=== PATIENT | male | born 1945 | race Caucasian/White ===

== ENCOUNTER 2022-09-20 10:29 | Inpatient (IN) | payer MEDICARE, SELFPAY ==
[2022-09-20] VITALS (24 sets, daily range): BP systolic 104–155; BP diastolic 68–90; PULSE 67–87; RESP 14–18; TEMP 35.8–36.6; O2SAT 92–98; BMI 40.2; BMI 34.0
[2022-09-20 10:43] LABS: Glucometer 89 mg/dL (74-106)
--- NOTE | 2022-09-20 10:49 | ECG_ITS ---
[facility] Test Date: 2022-09-20 Pat Name: CLARE VELÁSQUEZ Department: Room: - Gender: Male Manager Portable: : 1945 Requested By: [id number] Order Number: [id number] Reading MD: YOHAN CANALES Measurements Intervals [place] Rate: 69 P: -[id number] DE: -[id number] QRS: 48 QRSD: 92 T: 258 QT: 422 QTc: 441 Interpretive Statements [address]/T wave changes, can't exclude inferolateral ischemia 9150 abnormal ECG No previous ECG available for comparison Electronically Signed On 09-21-2022 9:51:35 EDT by YOHAN CANALES
--- NOTE | 2022-09-20 10:50 | CT_ITS ---
The [address] [address] Patient Name: CLARE VELÁSQUEZ MRN: [id number] date: 1945 Sex: M Assigned Patient Location: ED.MAIN Current Patient Location: ED.MAIN Accession/Order Number: [id number] Exam Date: 09/20/2022 11:05 Report Date: 09/20/2022 11:33 At the request of: ALLISON AYALA Procedure: CT stroke head/brain wo con XR chest 1V, CT stroke head/brain wo con, 09/20/2022 11:05 AM EDT INDICATION: CHANGE IN MENTAL STATUS COMPARISON: No prior CT scan of the head or radiograph of the chest available for comparison at the time of this dictation. TECHNIQUE: Axial CT images of the brain from skull base to vertex, including portions of the face and sinuses, were obtained without contrast. Multiplanar reformatted images were generated and reviewed as needed. FINDINGS: No intracranial mass, hydrocephalus, midline shift or acute hemorrhage. No extra-axial collection. Periventricular and deep white matter microvascular ischemic change. Carrasco-white matter differentiation is preserved. The paranasal sinuses and mastoid air cells are clear. Orbits are within normal limits. No acute skull fracture. CT/CT stroke head/brain wo con IMPRESSION: No acute intracranial abnormality. AP portable upright CHEST: Cardiomediastinal silhouette within normal limits. Portacatheter over the right chest wall with tip in the SVC. No lobar consolidation. Groundglass opacity at the lung base bilaterally. No lobar consolidation. No acute fracture or dislocation. IMPRESSION: Groundglass opacity within the lower lobes bilaterally. Differential considerations include mild pulmonary edema, hypoventilatory change. Electronically authenticated by: MARLEN QUIROGA Date: 09/20/2022 11:33
--- NOTE | 2022-09-20 10:55 | ED_ITS ---
HPI - General Adult General Chief complaint: Altered Mental Status Stated complaint: altered mental status Time Seen by Provider: 09/20/22 10:55 Mode of arrival: ambulance History of Present Illness HPI narrative: Patient is a 76-year-old male who is presenting to the Emergency Room today with chief complaint Confusion, weakness, and increasing pain. Patient was sitting in a chair last evening, patient was at home with his . Patient is wheelchair- bound, he uses a walker for limited transfers. Patient was sitting in his chair, patient's told him to move back into the chair and he moved forward. Another episode of confusion was patient's thinks that the patient called her Darl which is a brother. However, patient calls her darling often, and she is not certain if he meant to say darling and said Darl instead. Patient has a history of pancreatic cancer with bone metastases to multiple places including lower spine, pelvis. Patient was just diagnosed recently. Pt PCP is Dr Neri. PT lives in [facility]. Patient has no physicians at [facility]. Patient is currently in [facility] hospice care. Patient was diagnosed on August 09 with pancreatic cancer. Hospice was seen patient once a week, now they're seeing him twice a week. Patient has no headache. No chest pain or shortness of breath. Patient has chronic midepigastric pain and abdominal pain. No nausea or vomiting. No other acute complaints. Patient's and daughter are at bedside initially. Patient is currently a full code in hospice care [facility]. . All systems are negative except as noted/marked. All systems reviewed and otherwise negative. . Nurses note and vital signs reviewed and patient is not hypoxic. General: The patient appears well and in Mild distress secondary to pain. Patient is more somnolent, not lethargic. Patient is resting comfortably on cart. Patient is not toxic, lethargic, or listless. Skin: Warm, dry, no pallor noted. There is no rash noted. No petechiae, purpura. Head: Normocephalic, atraumatic Eye: Normal conjunctiva, no drainage, EOMI. PERRL Ears, Nose, Mouth, and Throat: oral mucosa is moist. Nares patent. Mouth without vesicles. Cardiovascular: Regular Rate and Rhythm, no murmur, gallop, rub Respiratory: Patient is in no distress, no accessory muscle use, lungs are clear to auscultation, no wheezing, rales or rhonchi Back: non-tender, no CVA tenderness bilaterally to percussion. No CT LS midline pain GI: soft, Moderate midepigastric tenderness to palpation. Diffuse mild tenderness to palpation, no masses appreciated. No rebound, mild guarding, or rigidity noted. No flank pain bilateral, No distention Musculoskeletal: Patient has full range of motion of all of the extremities, no motor, sensory, or focal neurological deficits Neurological: A&O x3, normal speech Psychiatric: Cooperative Related Data Home Medications Medication Instructions Recorded Confirmed acetaminophen 650 mg rectal 650 mg AL Q6H PRN fever or pain 09/20/22 09/20/22 suppository allopurinol 300 mg tablet 150 mg PO QDAY 09/20/22 09/20/22 alprazolam 0.5 mg tablet 0.5 mg PO Q4H PRN anxiety 09/20/22 09/20/22 amiodarone 200 mg tablet 200 mg PO Q12H 09/20/22 09/20/22 bisacodyl 10 mg rectal suppository 10 mg AL QDAY PRN constipation 09/20/22 09/20/22 bupropion HCl 150 mg 24 hr tablet, 150 mg PO QDAY 09/20/22 09/20/22 extended release dexamethasone 2 mg tablet 4 mg PO Q24H 09/20/22 09/20/22 furosemide 40 mg tablet 40 mg PO QDAY 09/20/22 09/20/22 hydromorphone 2 mg tablet 2 mg PO Q2H PRN pain 09/20/22 09/20/22 hyoscyamine sulfate 0.125 mg 0.125 mg PO Q4H PRN dyspepsia 09/20/22 09/20/22 tablet (Levsin) ivermectin 3 mg tablet 3 mg PO QDAY 09/20/22 09/20/22 latanoprost 0.005 % eye drops 1 drp ophthalmic (eye) QPM 09/20/22 09/20/22 loperamide 2 mg tablet (Diamode) 2 mg PO Q6H PRN loose stool 09/20/22 09/20/22 omeprazole 20 mg capsule,delayed 20 mg PO DAILY 09/20/22 09/20/22 release oxycodone-acetaminophen 5 mg-325 1 tab PO Q8H PRN pain 09/20/22 09/20/22 mg tablet (Endocet) oxygen-air delivery systems 09/20/22 09/20/22 promethazine 25 mg tablet 25 mg PO Q6H PRN nausea and 09/20/22 09/20/22 vomiting sennosides 8.6 mg-docusate sodium 2 tab-cap PO BID 09/20/22 09/20/22 50 mg tablet (Senna Plus) spironolactone 25 mg tablet 25 mg PO Q12H 09/20/22 09/20/22 tamsulosin 0.4 mg capsule 0.4 mg PO Q24H 09/20/22 09/20/22 timolol maleate 0.5 % eye drops 1 drp ophthalmic (eye) Q12H 09/20/22 09/20/22 Allergies Allergy/AdvReac Type Severity Reaction Status Date / Time No Known Drug Allergies Allergy Verified 09/20/22 10:30 Exam Constitutional Vital Signs, click to edit/add: Last Vital Signs Temp 96.4 F L 09/20/22 10:31 Pulse 67 09/20/22 10:31 Resp 14 09/20/22 10:31 BP 134/75 H 09/20/22 14:45 Pulse Ox 98 09/20/22 10:31 O2 Del Method Room Air 09/20/22 10:37 Course Vital Signs Vital signs: Vital Signs Temperature 96.4 F L 09/20/22 10:31 Pulse Rate 67 09/20/22 10:31 Respiratory Rate 14 09/20/22 10:31 Blood Pressure 155/84 H 09/20/22 10:31 Pulse Oximetry 98 09/20/22 10:31 Oxygen Delivery Method Room Air 09/20/22 10:31 Temperature 96.4 F L 09/20/22 10:31 Pulse Rate 67 09/20/22 10:31 Respiratory Rate 14 09/20/22 10:31 Blood Pressure 134/75 H 09/20/22 14:45 Pulse Oximetry 98 09/20/22 10:31 Oxygen Delivery Method Room Air 09/20/22 10:37 Medical Decision Making MDM Narrative Medical decision making narrative: I spent greater than 45 minutes at bedside with family with multiple conversations. Initial conversations speaking and patient's medical history, hospice care, full code status. Performing history and physical. Performing reevaluation. Performing 20 minute conversation of DNR ankle is status with DNR CCA, DNR CC, and DO NOT INTUBATE education. Education was done on hospice. Edwina for social worker clinical was very nicely come down and speak to the family as well on behalf of social worker clinical and hospice questions that they family had. Patient was given 2 L of IV fluid, several doses of Dilaudid. Patient is not moving much,Is still weak, having pain, and not functioning like he has in the past. Patient's lab last tests were back in August 2020, patient had normal LFTs at that time. Patient's LFTs are slightly elevated today compared to one year ago; however pancratic cancer was not diagnosed last year however. Patient's sodium levels with 25. Patient given 2 L of IV fluid. After greater than 30 minutes of end-of-life care discussions, patient agrees to and his BRUCE signed a form on behalf of patient that he is a DNR CCA, DO NOT INTUBATE, yes BiPAP or CPAP. Dr Wong Saw and evaluated the patient in the Emergency Room. No other recommendations at this time. Critical care time 35 minutes exclusive from separate billable procedures that were performed. The following was considered in the determination of critical care but not limited to the level of medical decision making, intensive cardiac and/or respiratory monitoring, frequent vital sign monitoring, evaluation of laboratory studies, evaluation of radiographic studies, oxygen monitoring, and constant monitoring and speaking to family at bedside Lab Data Lab results reviewed: Yes I reviewed the patient's lab results Labs: Lab Results 09/20/22 09/20/22 09/20/22 Range/Units 10:41 10:45 12:00 WBC 7.7 (4.0-11.0) 10^3/uL RBC 4.85 (4.70-6.10) 10^6/uL Hgb 15.5 (14.0-18.0) g/dL Hct 43.5 (42.0-54.0) % MCV 89.7 (80.0-94.0) fL MCH 32.0 (25.9-34.0) pg MCHC 35.6 H (29.9-35.2) g/dL RDW 15.7 H (11.0-15.0) % Plt Count 49 L (150-450) 10^3/uL MPV 10.6 (9.5-13.5) fL Seg Neuts % (Manual) 88.0 Lymphocytes % (Manual) 5.0 L (20.5-60.0) % Monocytes % (Manual) 6.0 (1.7-12.0) % Eosinophils % (Manual) 1.0 (0.9-7.0) % Neutrophils # (Manual) 6.77 H (1.4-6.5) 10^3/uL Lymphocytes # (Manual) 0.38 L (1.20-3.80) 10^3/uL Monocytes # (Manual) 0.46 (0.30-0.80) 10^3/uL Eosinophils # (Manual) 0.07 (0.00-0.70) 10^3/uL Basophils # (Manual) Not Reportable Sodium 125 L (136-145) mmol/L Potassium 4.1 (3.5-5.1) mmol/L Chloride 93 L (98-107) mmol/L Carbon Dioxide 23.8 (21.0-32.0) mmol/L Anion Gap 12.3 BUN 21.0 H (7.0-18.0) mg/dL Creatinine 0.78 (0.70-1.30) mg/dL Est GFR ( Amer) >60 (>=60) Est GFR (Non-Af Amer) >60 (>=60) BUN/Creatinine Ratio 26.9 Glucose 98 (74-106) mg/dL Lactate 1.4 (0.4-2.0) mmol/L Calcium 8.3 L (8.5-10.1) mg/dL Total Bilirubin 1.2 H (0.2-1.0) mg/dL AST 39 H (15-37) U/L ALT 76 H (16-63) U/L Alkaline Phosphatase 211 H (46-116) U/L C-Reactive Protein 4.3 H (<=1.0) mg/dL Total Protein 5.1 L (6.4-8.2) g/dL Albumin 2.4 L (3.4-5.0) g/dL Globulin 2.7 g/dL Albumin/Globulin Ratio 0.9 Urine Color Yellow (YELLOW) Urine Clarity Clear (CLEAR) Urine pH 8.0 (5.0-9.0) Ur Specific [place] 1.010 (1.005-1.025) Urine Protein Negative (NEG/TRACE) mg/dL Urine Glucose (UA) Negative (NEGATIVE) mg/dL Urine Ketones Negative (NEGATIVE) mg/dL Urine Occult Blood Moderate A (NEGATIVE) Urine Nitrite Negative (NEGATIVE) Urine Bilirubin Negative (NEGATIVE) Urine Urobilinogen 4.0 A (0.2-1.0) EU/dL Ur Leukocyte Esterase Negative (NEGATIVE) POC Glucose 89 (74-106) mg/dL ECG Data Attestation: I personally reviewed and interpreted this ECG as follows: Interpretation: EKG interpretation. Normal sinus rhythm at 69 beats a minute. Normal axis deviation. Artifact noted. QTC of 441. No acute ST elevation, no acute ectopy. Discharge Plan Discharge Chief Complaint: Altered Mental Status Clinical Impression: Pancreatic cancer, Chronic pain, Hyponatremia Patient Disposition: Admitted As Inpatient Condition: Fair
[2022-09-20 11:03] LABS: Hematocrit 43.5 % (42.0-54.0); Hemoglobin 15.5 g/dL (14.0-18.0); Mean Corpuscular HGB Conc 35.6 g/dL (29.9-35.2); Mean Corpuscular Volume 89.7 fL (80.0-94.0); Mean Platelet Volume 10.6 fL (9.5-13.5); Platelet Count 49 10^3/uL (150-450); Red Blood Count 4.85 10^6/uL (4.70-6.10); Red Cell Distribution Width 15.7 % (11.0-15.0); White Blood Count 7.7 10^3/uL (4.0-11.0)
[2022-09-20 11:14] LABS: Alanine Aminotransferase 76 U/L (16-63); Albumin Globulin Ratio 0.9; Albumin Level 2.4 g/dL (3.4-5.0); Alkaline Phosphatase 211 U/L (46-116); Anion Gap 12.3; Aspartate Amino Transferase 39 U/L (15-37); BUN Creatinine Ratio 26.9; Bilirubin Total 1.2 mg/dL (0.2-1.0); C Reactive Protein 4.3 mg/dL (<=1.0); Calcium 8.3 mg/dL (8.5-10.1); Carbon Dioxide 23.8 mmol/L (21.0-32.0); Chloride 93 mmol/L (98-107); Estimated GFR (African America >60 (>=60); Estimated GFR (Non-African Ame >60 (>=60); Globulin 2.7 g/dL; Glucose 98 mg/dL (74-106); Potassium 4.1 mmol/L (3.5-5.1); Sodium 125 mmol/L (136-145); Total Protein 5.1 g/dL (6.4-8.2)
[2022-09-20 11:17] LABS: Eosinophils Absolute Manual 0.07 10^3/uL (0.00-0.70); Lymphocytes Absolute Manual 0.38 10^3/uL (1.20-3.80); Monocytes Absolute Manual 0.46 10^3/uL (0.30-0.80); Segmented Neut Absolute Manual 6.77 10^3/uL (1.4-6.5)
[2022-09-20 11:27] LABS: Lactate/Lactic Acid 1.4 mmol/L (0.4-2.0)
[2022-09-20] MEDS: 0.9 % SODIUM CHLORIDE 1,000 ML 1000 ML IV ×2 (11:46→13:49)
[2022-09-20 12:21] LABS: Bilirubin Urine NEGATIVE (NEGATIVE); Blood Urine MODERATE (NEGATIVE); Clarity Urine CLEAR (CLEAR); Color Urine YELLOW (YELLOW); Glucose Urine UA NEGATIVE (NEGATIVE); Ketones Urine NEGATIVE (NEGATIVE); Leukocyte Esterase Urine NEGATIVE (NEGATIVE); Nitrite Urine NEGATIVE (NEGATIVE); Protein Urine NEGATIVE (NEG/TRACE)
[2022-09-20] MEDS: HYDROMORPHONE HCL 1 MG/ML CARTRIDGE IVP (13:49)
--- NOTE | 2022-09-20 14:08 | SWNOTE1 ---
GHADA received a call from nursing x2 and then spoke with doctor. Pt is at home with [facility] and family had questions/concerns. GHADA spoke with pt's , daughter, and son in room. Pt has [facility] at home and has had them since beginning of August. Pt's family inquired about inpt facility for pt to go to. GHADA let them know [facility] does not have one around here. GHADA explained that [facility] does, but a patient has to qualify to be admitted to the inpt unit. SW asked if they were not happy with the care [facility] was giving, they did not express unhappiness with the care. Family spoke with Carmina from [facility] this morning and they told her in order for family to get a hospital bed in the home, pt will have to sign DNR paperwork, pt is currently a full code. SW let family know SW is not sure on this guideline. Family also asked about if pt was admitted to hospital what that would entail. GHADA let them know if pt was admitted, hospice would be revoked and once he is ready for discharge, hospice would have to come back in and evaluate and sign back on. At this time no further questions. GHADA did give family resources on [facility] and [facility]. GHADA updated doctor. Family going to speak with doctor about code status.
[2022-09-20] MEDS: HYDROMORPHONE HCL 2 MG/ML VIAL 1 MG IV (15:05)
--- NOTE | 2022-09-20 16:47 | PM.HP ---
H&P: HPI History of Present Illness Chief complaint: altered mental status Narrative: patient is a 76-year-old male with past medical history of end-stage pancreatic cancer who underwent a Whipple procedure approximately one year ago. Since that time he has tried and failed chemotherapy and radiation. Approximately one month ago patient joined [facility] palliative care services.since yesterday has noticed some increased confusion, and some increased weakness. He has had less intake and just does not have an appetite. Also reports some abdominal pain, no fevers chills no nausea vomiting or diarrhea. He does admit to some constipation. is at bedside along with sign and brother. Patient signed a DNR CCA, and would like to get a [facility] hospice consult for possible inpatient. They do wish to do everything to make his symptoms improved or tolerable. They note he has been getting Lasix for some lower extremity swelling. They deny any history of heart failure. He also has not had a bowel movement in a few days, she denies any history of taking lactulose. Patient will be admitted to [facility] for further evaluation. Review of Systems ROS Narrative ROS: a complete review of systems were reviewed with patient and are positive as below or listed in History of Chief Complaint. General: no fever, chills, night sweats Head: no headache, trauma, visual changes, nausea or vomiting Skin: no reported rashes, itching or sores Eyes: no blurriness of vision Ears: no reported hearing loss, vertigo, earache, or tinnitus Throat: no sore throat, hoarseness, swelling of neck, or tongue pain Heart: no chest pain Lungs: no shortness of breath or cough GI: no diarrhea or vomiting/nausea, bloating Urinary: no urinary urgency, frequency or pain Neuro: no numbness or tingling HEM: no bleeding issues or bruising ENDO: no thyroid problems Psych: no anxiety or depression Meds Home Medications and Allergies Home Medications Medication Instructions Recorded Confirmed Type acetaminophen 650 mg rectal 650 mg WV Q6H PRN fever or pain 09/20/22 09/20/22 History suppository allopurinol 300 mg tablet 150 mg PO QDAY 09/20/22 09/20/22 History alprazolam 0.5 mg tablet 0.5 mg PO Q4H PRN anxiety 09/20/22 09/20/22 History amiodarone 200 mg tablet 200 mg PO Q12H 09/20/22 09/20/22 History bisacodyl 10 mg rectal suppository mg W[place] QDAY PRN constipation 09/20/22 History bupropion HCl 150 mg 24 hr tablet, 150 mg PO QDAY 09/20/22 09/20/22 History extended release dexamethasone 2 mg tablet 4 mg PO Q24H 09/20/22 09/20/22 History furosemide 40 mg tablet 40 mg PO QDAY 09/20/22 09/20/22 History hydromorphone 2 mg tablet 2 mg PO Q2H PRN pain 09/20/22 09/20/22 History hyoscyamine sulfate 0.125 mg 0.125 mg PO Q4H PRN dyspepsia 09/20/22 09/20/22 History tablet (Levsin) ivermectin 3 mg tablet 3 mg PO QDAY 09/20/22 09/20/22 History latanoprost 0.005 % eye drops 1 drp ophthalmic (eye) QPM 09/20/22 09/20/22 History loperamide 2 mg tablet (Diamode) 2 mg PO Q6H PRN loose stool 09/20/22 09/20/22 History omeprazole 20 mg capsule,delayed 20 mg PO DAILY 09/20/22 09/20/22 History release oxycodone-acetaminophen 5 mg-325 1 tab PO Q8H PRN pain 09/20/22 09/20/22 History mg tablet (Endocet) oxygen-air delivery systems 09/20/22 09/20/22 History promethazine 25 mg tablet 25 mg PO Q6H PRN nausea and 09/20/22 09/20/22 History vomiting sennosides 8.6 mg-docusate sodium 2 tab-cap PO BID 09/20/22 09/20/22 History 50 mg tablet (Senna Plus) spironolactone 25 mg tablet 25 mg PO Q12H 09/20/22 09/20/22 History tamsulosin 0.4 mg capsule 0.4 mg PO Q24H 09/20/22 09/20/22 History timolol maleate 0.5 % eye drops 1 drp ophthalmic (eye) Q12H 09/20/22 09/20/22 History Allergies Allergy/AdvReac Type Severity Reaction Status Date / Time No Known Drug Allergies Allergy Verified 09/20/22 10:30 Exam Narrative Exam Narrative: General: Patient is alert, and oriented to person, place and time with normal affect, proper hygiene Skin: no visible rashes, or ulcers Head: atraumatic, acephalic Eyes: PERRLA, no nystagmus present, conjunctiva clear, no scleral icterus Ears: normal Tympanic Membrane, normal gross auditory acuity Nose: symmetric, no discharge, no maxillary or frontal sinus tenderness Mouth/Throat: no erythema, exudate, or tonsillar enlargement, normal dentition Neck: no masses palpated, normal thyroid, no JVD or audible carotid bruits Heart: Normal rate and rhythm, no murmurs/rubs/gallops Lungs: no audible wheezes, crackles and normal breath sounds all lung casanova Abdomen: Normal audible bowel sounds, no distension, No palpable masses, no organomegaly, no rebound/guarding/ or rigidity Musculoskeletal: muscle atrophy noted, ROM is limited due to being in hospital bed, +1 swelling bilateral lower extremities Vascular: Normal carotid, radial, femoral, posterior tibial, and dorsalis pedis pulses Lymph: no supraclavicular, axillary, or anterior/posterior cervical adenopathy Neuro: CN II-X grossly intact, normal sensation upper and lower extremities Constitutional Vital Signs, click to edit/add: Last Vital Signs Temp 96.4 F L 09/20/22 10:31 Pulse 67 09/20/22 10:31 Resp 14 09/20/22 10:31 BP 134/75 H 09/20/22 14:45 Pulse Ox 98 09/20/22 10:31 O2 Del Method Room Air 09/20/22 10:37 Results Labs Labs: Short CBC 09/20/22 Range/Units 10:45 WBC 7.7 (4.0-11.0) 10^3/uL Hgb 15.5 (14.0-18.0) g/dL Hct 43.5 (42.0-54.0) % Plt Count 49 L (150-450) 10^3/uL BMP 09/20/22 10:45 Sodium 125 L Potassium 4.1 Chloride 93 L Carbon Dioxide 23.8 BUN 21.0 H Creatinine 0.78 Glucose 98 Calcium 8.3 L Liver Function 09/20/22 Range/Units 10:45 Total Bilirubin 1.2 H (0.2-1.0) mg/dL AST 39 H (15-37) U/L ALT 76 H (16-63) U/L Alkaline Phosphatase 211 H (46-116) U/L Albumin 2.4 L (3.4-5.0) g/dL Urine 09/20/22 Range/Units 12:00 Urine Color Yellow (YELLOW) Urine Clarity Clear (CLEAR) Urine pH 8.0 (5.0-9.0) Ur Specific [place] 1.010 (1.005-1.025) Urine Protein Negative (NEG/TRACE) mg/dL Urine Glucose (UA) Negative (NEGATIVE) mg/dL Assessment and Plan Assessment and Plan (1) Hyponatremia: Assessment and Plan: replace by providing low rate Normal saline, recheck sodium (2) Chronic pain: Assessment and Plan: continue IV as needed morphine, continue home medications (3) Pancreatic cancer: Assessment and Plan: end stage, palliative and hospice consult for possible inpatient admission? (4) Elevated LFTs: Assessment and Plan: check ammonia level, lactulose for constipation symptoms. recheck in the morning, consider CT of the abd/pelvis Plan lovenox to DVT prophylaxis DNRCCA patient is under observation status and is not expected to stay more than 2 midnights.
[2022-09-20 17:37] LABS: Ammonia 71 umol/L (11-32)
[2022-09-20] MEDS: ALPRAZOLAM 0.5 MG TABLET PO (18:39)
[2022-09-20] MEDS: MORPHINE SULFATE 2 MG/ML SYRINGE IV (18:39)
[2022-09-20] MEDS: 0.9 % SODIUM CHLORIDE 1,000 ML 100 ML IV (18:40)
[2022-09-20] MEDS: DEXAMETHASONE 4 MG TABLET PO (21:24)
[2022-09-20] MEDS: TAMSULOSIN HCL 0.4 MG CAPSULE PO (21:24)
[2022-09-20] MEDS: ENOXAPARIN SODIUM 40 MG/0.4 ML SYRINGE SUBQ (21:24)
[2022-09-20] MEDS: TIMOLOL MALEATE 0.5% OP SOL 100 DROPS/5 ML BOTTLE 1 DROP OP (21:24)
[2022-09-20] MEDS: FUROSEMIDE 40 MG/4 ML VIAL IVP (22:55)
[2022-09-21 04:28] VITALS: BP 108/65; PULSE 76; RESP 20; TEMP 36.4; O2SAT 90
[2022-09-21] MEDS: 0.9 % SODIUM CHLORIDE 1,000 ML 100 ML IV (04:52)
[2022-09-21 05:11] LABS: Basophils Percent Auto 0.3 % (0.2-2.0); Eosinophils Percent Auto 0.1 % (0.9-7.0); Immature Granulocytes Abs Auto 0.09 10^3/uL (0.00-0.03); Immature Granulocytes Pct Auto 1.1 % (0.0-0.5); Lymphocytes Absolute Auto 0.2 10^3/uL (1.2-3.8); Lymphocytes Percent Auto 2.3 % (20.5-60.0); Mean Corpuscular HGB Conc 35.9 g/dL (29.9-35.2); Mean Corpuscular Hemoglobin 32.6 pg (25.9-34.0); Mean Corpuscular Volume 90.9 fL (80.0-94.0); Mean Platelet Volume 11.7 fL (9.5-13.5); Monocytes Absolute Auto 0.3 10^3/uL (0.3-0.8); Monocytes Percent Auto 3.2 % (1.7-12.0); Neutrophils Absolute Auto 7.4 10^3/uL (1.4-6.5); Red Blood Count 4.29 10^6/uL (4.70-6.10); Red Cell Distribution Width 15.9 % (11.0-15.0); White Blood Count 7.9 10^3/uL (4.0-11.0)
[2022-09-21 05:27] LABS: Alanine Aminotransferase 66 U/L (16-63); Albumin Globulin Ratio 0.7; Albumin Level 1.8 g/dL (3.4-5.0); Alkaline Phosphatase 201 U/L (46-116); Anion Gap 9.7; Aspartate Amino Transferase 42 U/L (15-37); BUN Creatinine Ratio 26.3; Calcium 7.2 mg/dL (8.5-10.1); Carbon Dioxide 25.3 mmol/L (21.0-32.0); Chloride 96 mmol/L (98-107); Estimated GFR (African America >60 (>=60); Estimated GFR (Non-African Ame >60 (>=60); Globulin 2.6 g/dL; Glucose 76 mg/dL (74-106); Magnesium 1.8 mg/dL (1.8-2.4); Sodium 127 mmol/L (136-145); Total Protein 4.4 g/dL (6.4-8.2)
[2022-09-21 05:31] LABS: Platelet Count 31 10^3/uL (150-450)
[2022-09-21] MEDS: BUPROPION HCL 150 MG XL TABLET 24H PO (08:16)
[2022-09-21] MEDS: PANTOPRAZOLE SODIUM 40 MG VIAL IV (08:16)
[2022-09-21] MEDS: ALLOPURINOL 300 MG TABLET 150 MG PO (08:16)
[2022-09-21] MEDS: AMIODARONE HCL 200 MG TABLET PO (08:17)
[2022-09-21] MEDS: TIMOLOL MALEATE 0.5% OP SOL 100 DROPS/5 ML BOTTLE 1 DROP OP ×2 (08:17→22:48)
[2022-09-21] MEDS: SPIRONOLACTONE 25 MG TABLET PO ×2 (08:17→14:01)
[2022-09-21] MEDS: FUROSEMIDE 40 MG/4 ML VIAL IVP ×2 (09:39→14:01)
[2022-09-21 10:51] LABS: Anion Gap 13.2; BUN Creatinine Ratio 22.4; Calcium 7.3 mg/dL (8.5-10.1); Carbon Dioxide 22.9 mmol/L (21.0-32.0); Chloride 96 mmol/L (98-107); Estimated GFR (African America >60 (>=60); Estimated GFR (Non-African Ame >60 (>=60); Glucose 140 mg/dL (74-106); Potassium 4.1 mmol/L (3.5-5.1); Sodium 128 mmol/L (136-145)
[2022-09-21 14:04] VITALS: BP 100/61; PULSE 72; RESP 18; TEMP 36.4; O2SAT 93
--- NOTE | 2022-09-21 15:02 | P.IMPN_ITS ---
Progress Note: A&P Assessment and Plan (1) Metabolic encephalopathy: Assessment and Plan: Sec to hyponatremia and hyperammonemia. Improved. Still lethargic. Refusing lactulose. Reiterated that he needs to use it to feel better. (2) Hyponatremia: Assessment and Plan: Likely hypervolemic hyponatremia. Started on IV Lasix 40 q12. Stop IVF. Monitor closely Urine sodium/Cr ordered (3) Hyperammonemia: Assessment and Plan: From pancreatic cancer, constipation. Lactulose ordered to help with BM and hyperammonemia (4) Acute heart failure with preserved ejection fraction: Assessment and Plan: Volume overload on exam. Suspect HFpEF. no old ECHO in hospital records. Lasix 40 q12. Holding off on ECHO for now. monitor I/Os, daily weights. (5) Pancreatic cancer: Assessment and Plan: Metastatic pancreatic cancer. s/p Whipple 01/22 and had chemo prior to that. Pt has abdominal metastasis resulting in poorly controlled abd pain and was enrolled in hospice for pain control. Qualifiers: Pancreatic malignancy location: unspecified Qualified Code(s): C25.9 - Malignant neoplasm of pancreas, unspecified (6) Elevated LFTs: Assessment and Plan: Likely due to Pancreatic cancer. Monitor. (7) Chronic pain: Assessment and Plan: Due to metastatic Pancreatic cancer. Controlled on current regimen now and appears comfortable (8) History of atrial fibrillation: Assessment and Plan: In NSR. On amiodarone. C/w it as per family's request. (9) Hospice care: Assessment and Plan: Currently enrolled in hospice and was sent to ED for change in mental status. Patient was a full code prior to ED visit and was made DNR CCA by ED provider. D/w and daughter and explained to them in detail about hospcie, palliative care. [facility] has a phone meeting with family tomorrow. Family reluctant to withhold treatment/labs/diagnostic w/u and would like for us to c/w same for now. Internal Medicine - PN: Subj Subjective Interval history: Seen and examined. No overnight events. Mental status is improved from yesterday. Abd pain is well controlled too. Exam Constitutional Vital Signs, click to edit/add: Last Vital Signs Temp 97.5 F L 09/21/22 14:04 Pulse 72 09/21/22 14:04 Resp 18 09/21/22 14:04 BP 100/61 09/21/22 14:04 Pulse Ox 93 L 09/21/22 14:04 O2 Del Method Room Air 09/21/22 14:04 Documenting provider has reviewed patient's vital signs: yes General appearance: cooperative, comfortable and lethargic Nutritional appearance: obese HENMT Common normals: normocephalic and head/scalp atraumatic Respiratory Common normals: normal respiratory effort, no use of accessory muscles and clear to auscultation bilaterally Cardio Common normals: no JVD, regular rate, regular rhythm, S1 normal heart sound, S2 normal heart sound and no murmurs GI Common normals: Normal to inspection, nondistended, normoactive bowel sounds present, non-tender and no hepatosplenomegaly Extremity General: edema (+2 LE ) Neuro Common normals: oriented x3, moves all extremities, no focal motor deficits and no sensory deficits noted Sensorium/orientation: lethargic Psych Common normals: cooperative, denies hallucinations, denies homicidal ideation and denies suicidal ideation Internal Medicine - PN: Obj Da Labs Labs: Laboratory Results - last 24 hr 09/20/22 09/21/22 09/21/22 17:12 04:30 10:28 WBC 7.9 RBC 4.29 L Hgb 14.0 Hct 39.0 L MCV 90.9 MCH 32.6 MCHC 35.9 H RDW 15.9 H Plt Count 31 L MPV 11.7 Neut % (Auto) 93.0 H Lymph % (Auto) 2.3 L [place] % (Auto) 3.2 Eos % (Auto) 0.1 L Baso % (Auto) 0.3 Neut # (Auto) 7.4 H Lymph # (Auto) 0.2 L [place] # (Auto) 0.3 Eos # (Auto) 0.0 Baso # (Auto) 0.0 Abs Immat Gran (auto) 0.09 H Imm/Tot Granulo (auto) 1.1 H Sodium 127 L 128 L Potassium 4.0 4.1 Chloride 96 L 96 L Carbon Dioxide 25.3 22.9 Anion Gap 9.7 13.2 BUN 20.0 H 19.0 H Creatinine 0.76 0.85 Est GFR ( Amer) >60 >60 Est GFR (Non-Af Amer) >60 >60 BUN/Creatinine Ratio 26.3 22.4 Glucose 76 140 H Calcium 7.2 L 7.3 L Magnesium 1.8 Total Bilirubin 1.0 AST 42 H ALT 66 H Alkaline Phosphatase 201 H Ammonia 71 H* NT-Pro-B Natriuret Pep 7710.0 H* Total Protein 4.4 L Albumin 1.8 L Globulin 2.6 Albumin/Globulin Ratio 0.7 Urinary Catheter Management Urinary Catheter Management 2-way Urethral: Cath placed during this visit: yes Urethral indwelling: No Insertion date: 09/20/22 Insertion time: 19:30
[2022-09-21 16:48] LABS: Anion Gap 14.9; BUN Creatinine Ratio 18.8; Calcium 7.1 mg/dL (8.5-10.1); Carbon Dioxide 22.8 mmol/L (21.0-32.0); Chloride 94 mmol/L (98-107); Estimated GFR (African America >60 (>=60); Estimated GFR (Non-African Ame >60 (>=60); Glucose 198 mg/dL (74-106); Potassium 3.7 mmol/L (3.5-5.1); Sodium 128 mmol/L (136-145)
[2022-09-21 17:05] VITALS: O2SAT 93
[2022-09-21 20:00] VITALS: PULSE 67
[2022-09-21 20:54] VITALS: BP 112/66; PULSE 79; RESP 18; TEMP 36.4; O2SAT 93
[2022-09-21] MEDS: TAMSULOSIN HCL 0.4 MG CAPSULE PO (22:49)
[2022-09-21] MEDS: DEXAMETHASONE 4 MG TABLET PO (22:49)
[2022-09-21] MEDS: ENOXAPARIN SODIUM 40 MG/0.4 ML SYRINGE SUBQ (22:49)
[2022-09-21 22:52] VITALS: O2SAT 92
[2022-09-22] VITALS (8 sets, daily range): BP systolic 99–122; BP diastolic 61–72; PULSE 67–75; RESP 18; TEMP 36.2–36.6; O2SAT 91–93
[2022-09-22] MEDS: ACETAMINOPHEN 325 MG TABLET 650 MG PO ×2 (00:58→16:55)
[2022-09-22 04:57] LABS: Basophils Percent Auto 0.2 % (0.2-2.0); Hematocrit 37.3 % (42.0-54.0); Hemoglobin 13.3 g/dL (14.0-18.0); Immature Granulocytes Abs Auto 0.14 10^3/uL (0.00-0.03); Immature Granulocytes Pct Auto 1.5 % (0.0-0.5); Lymphocytes Absolute Auto 0.2 10^3/uL (1.2-3.8); Lymphocytes Percent Auto 1.6 % (20.5-60.0); Mean Corpuscular HGB Conc 35.7 g/dL (29.9-35.2); Mean Corpuscular Hemoglobin 32.1 pg (25.9-34.0); Mean Corpuscular Volume 90.1 fL (80.0-94.0); Mean Platelet Volume 12.8 fL (9.5-13.5); Monocytes Absolute Auto 0.4 10^3/uL (0.3-0.8); Monocytes Percent Auto 4.6 % (1.7-12.0); Neutrophils Absolute Auto 8.5 10^3/uL (1.4-6.5); Neutrophils Percent Auto 92.1 % (43.0-75.0); Red Blood Count 4.14 10^6/uL (4.70-6.10); Red Cell Distribution Width 15.9 % (11.0-15.0); White Blood Count 9.3 10^3/uL (4.0-11.0)
[2022-09-22 05:26] LABS: Alanine Aminotransferase 101 U/L (16-63); Albumin Globulin Ratio 0.6; Albumin Level 1.7 g/dL (3.4-5.0); Alkaline Phosphatase 202 U/L (46-116); Anion Gap 11.3; Aspartate Amino Transferase 80 U/L (15-37); Bilirubin Total 0.9 mg/dL (0.2-1.0); Calcium 7.2 mg/dL (8.5-10.1); Carbon Dioxide 24.7 mmol/L (21.0-32.0); Chloride 94 mmol/L (98-107); Estimated GFR (African America >60 (>=60); Estimated GFR (Non-African Ame >60 (>=60); Globulin 2.7 g/dL; Glucose 191 mg/dL (74-106); Magnesium 1.8 mg/dL (1.8-2.4); Sodium 126 mmol/L (136-145); Total Protein 4.4 g/dL (6.4-8.2)
[2022-09-22 05:32] LABS: Platelet Count 29 10^3/uL (150-450)
--- NOTE | 2022-09-22 08:18 | PC.NURSE ---
@ 1900 had a conversation with about pt condition and had asked repeatedly what meds her was on due to him sleeping a lot. went over med list, and informed that due to his condition was the reason he was sleeping so much, no meds should have contributed to his somnolent state other than his current prognosis. later during med pass pt had question about an eye drop and asked to speak with his wifw about them, I assited than he spoke with his and cinfirmed how he normally took the drops at home. after that @2330 while walking past pt room seen someone standing at his bedside and stopped into check. His hadcome and was standing with him, bedside than informed me that there were a few more people coming . shortly after registration called and informed us that there was a group of people running upstairs to see their relative. There was i believe 8 people now in the pt room and going to the desk asking for the nurse. after taking care of my other pts i stopped at the entrance to the room and had a conversation with the and family about the relatives condition. Explained disease process and effects on body. family was starting to disrupt not only pt but additional pts on the floor. after repeatedly talking to family and , since the pt was A&O what he wanted versus what family wanted. got pt to tell me what I could do to help him and make a plan of care for him. it wasnt till aafter almost 0130 did the family finally begin to disperse from the floor and quiet down. pt did rest after family let him calm down and got some rest. stayed with the remainder of the night.
[2022-09-22] MEDS: FUROSEMIDE 40 MG/4 ML VIAL IVP ×2 (08:46→14:03)
[2022-09-22] MEDS: ALLOPURINOL 300 MG TABLET 150 MG PO (08:47)
[2022-09-22] MEDS: BUPROPION HCL 150 MG XL TABLET 24H PO (08:47)
[2022-09-22] MEDS: AMIODARONE HCL 200 MG TABLET PO (08:47)
[2022-09-22] MEDS: PANTOPRAZOLE SODIUM 40 MG VIAL IV (08:48)
[2022-09-22] MEDS: TIMOLOL MALEATE 0.5% OP SOL 100 DROPS/5 ML BOTTLE 1 DROP OP ×2 (08:48→20:42)
[2022-09-22] MEDS: MORPHINE SULFATE 2 MG/ML SYRINGE IV (08:48)
[2022-09-22] MEDS: ONDANSETRON PF 4 MG/2 ML VIAL IV (08:53)
[2022-09-22 12:36] LABS: Anion Gap 8.5; BUN Creatinine Ratio 18.7; Calcium 7.6 mg/dL (8.5-10.1); Carbon Dioxide 27.5 mmol/L (21.0-32.0); Chloride 95 mmol/L (98-107); Estimated GFR (African America >60 (>=60); Estimated GFR (Non-African Ame >60 (>=60); Glucose 213 mg/dL (74-106); Sodium 127 mmol/L (136-145)
--- NOTE | 2022-09-22 14:54 | P.IMPN_ITS ---
Progress Note: A&P Assessment and Plan (1) Metabolic encephalopathy: Assessment and Plan: Sec to hyponatremia and hyperammonemia. Improved. (2) Hyponatremia: Assessment and Plan: Likely hypervolemic hyponatremia. C/w IV Lasix 40 q12. Monitor closely Urine sodium/Cr ordered (3) Hyperammonemia: Assessment and Plan: From pancreatic cancer, constipation. Lactulose ordered to help with BM and hyperammonemia (4) Acute heart failure with preserved ejection fraction: Assessment and Plan: Volume overload on exam. Suspect HFpEF. no old ECHO in hospital records. Lasix 40 q12. Holding off on ECHO for now. monitor I/Os, daily weights. (5) Pancreatic cancer: Assessment and Plan: Metastatic pancreatic cancer. s/p Whipple 01/22 and had chemo prior to that. Pt has abdominal metastasis resulting in poorly controlled abd pain and was enrolled in hospice for pain control. Qualifiers: Pancreatic malignancy location: unspecified Qualified Code(s): C25.9 - Malignant neoplasm of pancreas, unspecified (6) Elevated LFTs: Assessment and Plan: Likely due to Pancreatic cancer. Monitor. (7) Chronic pain: Assessment and Plan: Due to metastatic Pancreatic cancer. Controlled on current regimen now and appears comfortable (8) History of atrial fibrillation: Assessment and Plan: In NSR. On amiodarone. C/w it as per family's request. (9) Hospice care: Assessment and Plan: Awaiting hospital bed at home. Will d/c home tomorrow once the bed is available. Internal Medicine - PN: Subj Subjective Interval history: Seen and examined. No overnight events. Mental status is improved from yesterday. More awake and communicative Change to inpatient as patient initially expected to go home sooner on hospice but later on, family wanted to manage his medical conditions too actively that prolonged his hospital stay. He is anticipated to go home today once hospital bed is available. Exam Constitutional Vital Signs, click to edit/add: Last Vital Signs Temp 97.1 F L 09/22/22 14:08 Pulse 72 09/22/22 14:08 Resp 18 09/22/22 14:08 BP 99/61 09/22/22 14:08 Pulse Ox 93 L 09/22/22 14:08 O2 Del Method Room Air 09/22/22 14:08 Documenting provider has reviewed patient's vital signs: yes General appearance: cooperative and comfortable Nutritional appearance: obese HENMT Common normals: normocephalic and head/scalp atraumatic Respiratory Common normals: normal respiratory effort, no use of accessory muscles and clear to auscultation bilaterally Cardio Common normals: no JVD, regular rate, regular rhythm, S1 normal heart sound, S2 normal heart sound and no murmurs GI Common normals: Normal to inspection, nondistended, normoactive bowel sounds present, non-tender and no hepatosplenomegaly Extremity General: edema (+2 LE ) Neuro Common normals: oriented x3, moves all extremities, no focal motor deficits and no sensory deficits noted Psych Common normals: cooperative, denies hallucinations, denies homicidal ideation and denies suicidal ideation Internal Medicine - PN: Obj Da Labs Labs: Laboratory Results - last 24 hr 09/21/22 09/22/22 09/22/22 16:30 04:40 12:10 WBC 9.3 RBC 4.14 L Hgb 13.3 L Hct 37.3 L MCV 90.1 MCH 32.1 MCHC 35.7 H RDW 15.9 H Plt Count 29 L* MPV 12.8 Neut % (Auto) 92.1 H Lymph % (Auto) 1.6 L [place] % (Auto) 4.6 Eos % (Auto) 0.0 L Baso % (Auto) 0.2 Neut # (Auto) 8.5 H Lymph # (Auto) 0.2 L [place] # (Auto) 0.4 Eos # (Auto) 0.0 Baso # (Auto) 0.0 Abs Immat Gran (auto) 0.14 H Imm/Tot Granulo (auto) 1.5 H Sodium 128 L 126 L 127 L Potassium 3.7 4.0 4.0 Chloride 94 L 94 L 95 L Carbon Dioxide 22.8 24.7 27.5 Anion Gap 14.9 11.3 8.5 BUN 18.0 17.0 17.0 Creatinine 0.96 0.85 0.91 Est GFR ( Amer) >60 >60 >60 Est GFR (Non-Af Amer) >60 >60 >60 BUN/Creatinine Ratio 18.8 20.0 18.7 Glucose 198 H 191 H 213 H Calcium 7.1 L 7.2 L 7.6 L Magnesium 1.8 Total Bilirubin 0.9 AST 80 H ALT 101 H Alkaline Phosphatase 202 H NT-Pro-B Natriuret Pep 2641.0 H* Total Protein 4.4 L Albumin 1.7 L Globulin 2.7 Albumin/Globulin Ratio 0.6 Urinary Catheter Management Urinary Catheter Management 2-way Urethral: Cath placed during this visit: yes Urethral indwelling: No Insertion date: 09/20/22 Insertion time: 19:30
[2022-09-22] MEDS: ENOXAPARIN SODIUM 40 MG/0.4 ML SYRINGE SUBQ (20:41)
[2022-09-22] MEDS: ALPRAZOLAM 0.5 MG TABLET PO (20:42)
[2022-09-22] MEDS: TAMSULOSIN HCL 0.4 MG CAPSULE PO (20:42)
[2022-09-22] MEDS: DEXAMETHASONE 4 MG TABLET PO (20:42)
[2022-09-22] MEDS: LACTULOSE 10 GM/15 ML SOLUTION PO (20:42)
[2022-09-23 03:54] VITALS: BP 93/57; PULSE 73; RESP 20; TEMP 36.9; O2SAT 92
[2022-09-23 03:58] LABS: Hematocrit 37.9 % (42.0-54.0); Hemoglobin 13.4 g/dL (14.0-18.0); Mean Corpuscular HGB Conc 35.4 g/dL (29.9-35.2); Mean Corpuscular Hemoglobin 31.8 pg (25.9-34.0); Red Blood Count 4.21 10^6/uL (4.70-6.10); Red Cell Distribution Width 15.7 % (11.0-15.0); White Blood Count 8.9 10^3/uL (4.0-11.0)
[2022-09-23 04:05] VITALS: O2SAT 90
[2022-09-23 04:50] LABS: Alanine Aminotransferase 94 U/L (16-63); Albumin Globulin Ratio 0.6; Albumin Level 1.6 g/dL (3.4-5.0); Alkaline Phosphatase 228 U/L (46-116); Anion Gap 6.7; Aspartate Amino Transferase 53 U/L (15-37); BUN Creatinine Ratio 23.1; Calcium 7.7 mg/dL (8.5-10.1); Carbon Dioxide 29.1 mmol/L (21.0-32.0); Chloride 95 mmol/L (98-107); Estimated GFR (African America >60 (>=60); Estimated GFR (Non-African Ame >60 (>=60); Globulin 2.8 g/dL; Glucose 152 mg/dL (74-106); Magnesium 1.8 mg/dL (1.8-2.4); Potassium 3.8 mmol/L (3.5-5.1); Sodium 127 mmol/L (136-145); Total Protein 4.4 g/dL (6.4-8.2)
[2022-09-23 04:55] LABS: Band Neutrophils Absolute 0.6 10^3/uL (0.0-0.3); Lymphocytes Absolute Manual 0.17 10^3/uL (1.20-3.80); Monocytes Absolute Manual 0.35 10^3/uL (0.30-0.80); Platelet Count 18 10^3/uL (150-450); Segmented Neut Absolute Manual 7.74 10^3/uL (1.4-6.5)
[2022-09-23] MEDS: FUROSEMIDE 40 MG/4 ML VIAL IVP (06:07)
[2022-09-23 07:28] VITALS: PULSE 64
[2022-09-23] MEDS: ACETAMINOPHEN 325 MG TABLET 650 MG PO (07:44)
[2022-09-23 09:21] VITALS: BP 105/67; PULSE 64
[2022-09-23] MEDS: PANTOPRAZOLE SODIUM 40 MG VIAL IV (09:21)
[2022-09-23] MEDS: AMIODARONE HCL 200 MG TABLET PO (09:21)
[2022-09-23] MEDS: BUPROPION HCL 150 MG XL TABLET 24H PO (09:21)
[2022-09-23] MEDS: LACTULOSE 10 GM/15 ML SOLUTION PO (09:21)
[2022-09-23] MEDS: TIMOLOL MALEATE 0.5% OP SOL 100 DROPS/5 ML BOTTLE 1 DROP OP (09:24)
--- NOTE | 2022-09-23 12:12 | PM.DS1 ---
DS: Providers Provider Date of admission: 09/22/22 08:57 Primary care physician: HANY PINEDA Consults: 09/20/22 16:47 Consult to Hospice Routine Attending physician on discharge: Shaikh Benjamin Discharging clinician: Shaikh Benjamin Anticipated date of discharge: 09/23/22 DS: Diagnosis Discharge Diagnosis (1) Metabolic encephalopathy: Assessment and plan: Resolved. back to baseline (2) Hyponatremia: Assessment and plan: Stable but also not improving. Likely from volume overload. Will need outpatient f/u and monitoring (3) Hyperammonemia: Assessment and plan: Lactulose as needed (4) Acute heart failure with preserved ejection fraction: Assessment and plan: Lasix for volume control (5) Pancreatic cancer: Assessment and plan: Poor prognosis, metastatic pancreatic cancer. Will d/c home under hospice care. Qualifiers: Pancreatic malignancy location: unspecified Qualified Code(s): C25.9 - Malignant neoplasm of pancreas, unspecified (6) Elevated LFTs: Assessment and plan: from Pancreatic cancer. (7) Chronic pain: Assessment and plan: Well controlled on current regimen (8) History of atrial fibrillation: Assessment and plan: NSR. on amiodarone (9) Hospice care: Assessment and plan: D/c home under hospice care. (10) Thrombocytopenia: Assessment and plan: Stable with no evidence of bleeding DS: Summary Hospital Course Hospital Course: Admitted for change in mental status, weakness and inability to ambulate. Patient was enrolled in hospice for metastatic pancreatic cancer. On initial w/u found to have hyponatremia, hyperammonemia and was treated with lactulos along with lasix as hyponatremia was suspected to be due to volume overload. Mental status gradually improved but continues to have persistent hyponatremia. Patient also has constipation and has not moved his bowels. Will be discharged home under hospice care. D/w family and patient and they are aware and in agreement with plan of care. Status at Discharge Functional status at discharge: bed bound Overall status at discharge: patient is progressing back to baseline Time Spent with Patient Time attestation: Total time spent providing and/or coordinating discharge services: Time spent: greater than 30 minutes Exam Constitutional Vital Signs, click to edit/add: Last Vital Signs Temp 98.4 F 09/23/22 03:54 Pulse 64 09/23/22 09:21 Resp 20 09/23/22 03:54 BP 105/67 09/23/22 09:21 Pulse Ox 90 L 09/23/22 04:05 O2 Del Method Room Air 09/23/22 04:05 Documenting provider has reviewed patient's vital signs: yes General appearance: cooperative and comfortable Nutritional appearance: obese HENMT Common normals: normocephalic and head/scalp atraumatic Respiratory Common normals: normal respiratory effort, no use of accessory muscles and clear to auscultation bilaterally Cardio Common normals: no JVD, regular rate, regular rhythm, S1 normal heart sound, S2 normal heart sound and no murmurs GI Common normals: Normal to inspection, nondistended, normoactive bowel sounds present, non-tender and no hepatosplenomegaly Extremity General: edema (+1 LE EDEMA) Neuro Common normals: oriented x3, moves all extremities, no focal motor deficits and no sensory deficits noted Psych Common normals: cooperative, denies hallucinations, denies homicidal ideation and denies suicidal ideation DS: Data Data Completed and Pending Labs on day of discharge: Labs from last 24 hours 09/23/22 09/22/22 03:30 12:10 WBC 8.9 RBC 4.21 L Hgb 13.4 L Hct 37.9 L MCV 90.0 MCH 31.8 MCHC 35.4 H RDW 15.7 H Plt Count 18 L* MPV TNP Seg Neuts % (Manual) 87.0 Band Neutrophils % 7.0 H Lymphocytes % (Manual) 2.0 L Monocytes % (Manual) 4.0 Eosinophils % (Manual) 0.0 L Basophils % (Manual) 0.0 L Neutrophils # (Manual) 7.74 H Band Neutrophils # 0.6 H Lymphocytes # (Manual) 0.17 L Monocytes # (Manual) 0.35 Eosinophils # (Manual) 0.00 Basophils # (Manual) 0.00 Sodium 127 L 127 L Potassium 3.8 4.0 Chloride 95 L 95 L Carbon Dioxide 29.1 27.5 Anion Gap 6.7 8.5 BUN 18.0 17.0 Creatinine 0.78 0.91 Est GFR ( Amer) >60 >60 Est GFR (Non-Af Amer) >60 >60 BUN/Creatinine Ratio 23.1 18.7 Glucose 152 H 213 H Calcium 7.7 L 7.6 L Magnesium 1.8 Total Bilirubin 1.0 AST 53 H ALT 94 H Alkaline Phosphatase 228 H NT-Pro-B Natriuret Pep 3687.0 H* Total Protein 4.4 L Albumin 1.6 L Globulin 2.8 Albumin/Globulin Ratio 0.6 Discharge Plan Discharge Disposition: Hospice - Home Condition: Fair Discharge Medications: New lactulose 10 gram/15 mL (15 mL) solution 10 g PO TID Qty: 473 0RF Continued acetaminophen 650 mg suppository 650 mg DC Q6H PRN (Reason: fever or pain) allopurinol 300 mg tablet 150 mg PO QDAY alprazolam 0.5 mg tablet 0.5 mg PO Q4H PRN (Reason: anxiety) amiodarone 200 mg tablet 200 mg PO Q24H bisacodyl 10 mg suppository 10 mg DC QDAY PRN (Reason: constipation) bupropion HCl 150 mg tablet extended release 24 hr 150 mg PO QDAY dexamethasone 2 mg tablet 4 mg PO Q24H hydromorphone 2 mg tablet 2 mg PO Q2H PRN (Reason: pain) furosemide 40 mg tablet 40 mg PO QDAY latanoprost 0.005 % drops 1 drp ophthalmic (eye) QPM hyoscyamine sulfate [Levsin] 0.125 mg tablet 0.125 mg PO Q4H PRN (Reason: dyspepsia) (DME) oxygen-air delivery systems Device See Rx Instructions .ROUTE Rx Instructions: As directed omeprazole 20 mg capsule,delayed release(DR/EC) 20 mg PO DAILY promethazine 25 mg tablet 25 mg PO Q6H PRN (Reason: nausea and vomiting) spironolactone 25 mg tablet 25 mg PO Q12H Patient Comments: takes at breakfast and 11am tamsulosin 0.4 mg capsule 0.4 mg PO Q24H sennosides-docusate sodium [Senna Plus] 8.6-50 mg tablet 2 tab-cap PO BID PRN (Reason: constipation) timolol maleate 0.5 % drops 1 drp OPHTHALMIC (EYE) Q12H Discontinued loperamide [Diamode] 2 mg tablet 2 mg PO Q6H PRN (Reason: loose stool) ivermectin 3 mg tablet 3 mg PO QDAY Activity: resume usual activities as tolerated Diet: advance to your usual diet Forms: Portal Instructions
--- NOTE | 2022-09-23 12:52 | CM.NOTE ---
Rounds made with Dr. Alexander pt to discharge home today with hospice.
--- NOTE | 2022-09-23 14:31 | SWNOTE1 ---
GHADA spoke with [facility] and spoke with pt's in room. Pt is being discharged today and the hospital bed did come yesterday. Family is ready for pt to return home and he was switched to DNRCCA and family does want [facility] to come back in. GHADA set up [facility] for 2:30 for pt to return home. GHADA notified family, nursing, and [facility]. GHADA sent over updates and dc orders to Hospice.
--- NOTE | 2022-09-23 16:27 | CM.NOTE ---
Important Message From [employer] discussed with pt's , verbalizes understanding and signs paper. Original given to pt and copy placed on pt's chart.
== END 2022-09-23 14:47 | disposition hospice, home (50) | DRG 640 ==
LOC: ER 16:51 → MS 17:05
PROVIDERS: Admitting Provider Family Medicine; Emergency Provider Emergency Medicine; PCP Family Medicine; Visit Provider Internal Medicine
DX: E87.1 Hypo-osmolality and hyponatremia (principal); G93.41 Metabolic encephalopathy; I50.31 Acute diastolic (congestive) heart failure; E72.20 Disorder of urea cycle metabolism, unspecified; C25.9 Malignant neoplasm of pancreas, unspecified; C79.51 Secondary malignant neoplasm of bone; R79.89 Other specified abnormal findings of blood chemistry; G89.29 Other chronic pain; D69.6 Thrombocytopenia, unspecified; K59.00 Constipation, unspecified; E87.70 Fluid overload, unspecified; Z66 Do not resuscitate; Z51.5 Encounter for palliative care; Z99.3 Dependence on wheelchair; Z86.79 Personal history of other diseases of the circulatory system; Z92.3 Personal history of irradiation; Z92.21 Personal history of antineoplastic chemotherapy; Z79.891 Long term (current) use of opiate analgesic; Z79.899 Other long term (current) drug therapy; Z90.49 Acquired absence of other specified parts of digestive tract
CPT/HCPCS: 36415; 36416; 36591; 51702; 70450; 71045; 80048; 80053; 81003; 82140; 82570; 82948; 83605; 83735; 83880; 83935; 84300; 85007; 85025; 86140; 93005; 94761; 96361; 96372; 96374; 96375; 96376; 99285; G0378; J1170